=== PATIENT | male | born 1975 | race Two or more races ===

== ENCOUNTER 2023-06-14 16:03 | Emergency (ER) | payer OTHER ==
[~2023-06-14] VITALS: Ht 162.6 cm; Wt 72.6 kg
== END 2023-06-14 18:21 | disposition home or self-care (01) ==
LOC: ER 16:03
DX: S61.012A Laceration without foreign body of left thumb without damage to nail, initial encounter (principal); W45.8XXA Other foreign body or object entering through skin, initial encounter; Y93.89 Activity, other specified; Y92.89 Other specified places as the place of occurrence of the external cause; Y99.8 Other external cause status